=== PATIENT | female | born 1935 | race Caucasian/White ===

== ENCOUNTER 2023-10-28 22:56 | Inpatient (IN) | payer BC ==
[~2023-10-28] VITALS: Ht 162.6 cm; Wt 56.7 kg
[2023-10-28] MEDS ORDERED: POTA-88 PO (23:17)
[2023-10-28] MEDS ORDERED: FERR-56 PO (23:17)
[2023-10-28] MEDS ORDERED: CALC215T4 PO (23:17)
[2023-10-28] MEDS ORDERED: LEVO112T5 PO (23:17)
[2023-10-28] MEDS ORDERED: METF-440 PO (23:17)
[2023-10-28] MEDS ORDERED: AMLO2.5T4 PO (23:17)
[2023-10-28] MEDS ORDERED: LACT-291 PO (23:17)
[2023-10-28] MEDS ORDERED: METO25TA6 PO (23:17)
[2023-10-28] MEDS ORDERED: FURO20TA4 PO (23:17)
[2023-10-28] MEDS ORDERED: APIX5TAB4 PO (23:17)
[2023-10-28] MEDS ORDERED: CRAN250C PO (23:17)
[2023-10-28] MEDS ORDERED: CHOL5POW PO (23:17)
[2023-10-28 23:28] LABS: ERYTHROCYTE SEDIMENTATION RATE 56 MM/HR (0-20)
[2023-10-28 23:29] LABS: CALCIUM 9.2 mg/dL (8.5-10.1); CARBON DIOXIDE 27 mmol/L (21-32); CHLORIDE 101 mmol/L (98-107); CREATININE 0.7 mg/dL (0.6-1.3); GLUCOSE 151 mg/dL (74-106); POTASSIUM 3.9 mmol/L (3.5-5.1); SODIUM SERUM 137 mmol/L (136-145); UREA NITROGEN, BLOOD 12 mg/dL (7-18)
[2023-10-28 23:30] LABS: BASOPHILS # (AUTO) 0.3 K/UL (0.0-0.2); BASOPHILS % (AUTO) 2.8 % (0.0-2.0); DIFFERENTIAL COMMENT 0; EOSINOPHILS # (AUTO) 0.1 K/uL (0.0-0.7); EOSINOPHILS % (AUTO) 1.1 % (0.0-7.0); HEMOGLOBIN 12.5 g/dL (10.9-14.3); LYMPHOCYTES # (AUTO) 0.8 K/uL (0.8-4.8); MEAN CORPUSCULAR HEMOGLOBIN 28.4 uug (24.7-32.8); MEAN CORPUSCULAR HGB CONC 34 g/dL (32.3-35.6); MEAN CORPUSCULAR VOLUME 84.2 fL (75.5-95.3); MONOCYTES # (AUTO) 1.2 K/uL (0.1-1.30); MONOCYTES % (AUTO) 10.4 % (0.0-11.0); NEUTROPHILS # (AUTO) 8.9 K/uL (1.8-8.9); NEUTROPHILS % (AUTO) 78.7 % (38.5-71.5); PLATELET COUNT (AUTO) 216 K/uL (179-408); RED CELL DISTRIBUTION WIDTH 16.1 % (12.3-17.7); WHITE BLOOD COUNT (AUTO) 11.3 K/uL (3.8-11.8)
[2023-10-28 23:42] LABS: ALANINE AMINOTRANSFERASE 8 U/L (14-59); ALBUMIN 3.2 g/dL (3.4-5.0); ALKALINE PHOSPHATASE 51 U/L (50-136); ASPARTATE AMINOTRANSFERASE < 5 U/L (15-37); BILIRUBIN,TOTAL 0.4 mg/dL (0.2-1.0); NT-PRO BNP 1521 pg/mL (0-125); TOTAL PROTEIN, SERUM 6.8 g/dL (6.4-8.2)
[2023-10-29] MEDS ORDERED: LIDOCAINE HCL 1% 20 ML VIAL ONE (01:30)
[2023-10-29] MEDS: LIDOCAINE HCL 1% 20 ML VIAL IJ ONE (01:43)
[2023-10-29] MEDS ORDERED: REMEDY ESSENTIAL ZINC PASTE 113 GM TP PRN (02:45)
[2023-10-29] MEDS ORDERED: ONDANSETRON 4 MG/2 ML VIAL IV PRN (02:45)
[2023-10-29] MEDS ORDERED: MAGNESIUM HYDROXIDE 30 ML LIQUID UDC PO PRN (02:45)
[2023-10-29 04:51] VITALS: BP 153/98; TEMP 98.1; O2SAT 95
[2023-10-29] MEDS ORDERED: VANCOMYCIN HCL 1,500 MG in IV DEXTROSE 5% 500 ML IV SCH (06:00)
[2023-10-29] MEDS ORDERED: VANCOMYCIN IV 200 ML ONE (06:27)
[2023-10-29] MEDS ORDERED: PIPERACILLIN/TAZOBACTAM/D5W 50 ML IV ONE (06:27)
[2023-10-29] MEDS: VANCOMYCIN IV 1,000 MG in IV DEXTROSE 5% 250 ML IV STA (06:51)
[2023-10-29] MEDS: PIPERACILLIN SODIUM/TAZOBACTAM 3.375 G in IV DEXTROSE 5% 50 ML IV STA (06:51)
[2023-10-29 07:04] LABS: BASOPHILS # (AUTO) 0.1 K/UL (0.0-0.2); BASOPHILS % (AUTO) 1.4 % (0.0-2.0); EOSINOPHILS % (AUTO) 0.4 % (0.0-7.0); HEMATOCRIT 37.6 % (31.2-41.9); HEMOGLOBIN 12.5 g/dL (10.9-14.3); LYMPHOCYTES # (AUTO) 0.9 K/uL (0.8-4.8); LYMPHOCYTES % (AUTO) 10.4 % (20.5-51.5); MEAN CORPUSCULAR HEMOGLOBIN 27.9 uug (24.7-32.8); MEAN CORPUSCULAR HGB CONC 33 g/dL (32.3-35.6); MEAN CORPUSCULAR VOLUME 84.2 fL (75.5-95.3); MONOCYTES # (AUTO) 0.8 K/uL (0.1-1.30); MONOCYTES % (AUTO) 9.5 % (0.0-11.0); NEUTROPHILS # (AUTO) 6.5 K/uL (1.8-8.9); NEUTROPHILS % (AUTO) 78.3 % (38.5-71.5); PLATELET COUNT (AUTO) 205 K/uL (179-408); RED BLOOD CELL COUNT(AUTO) 4.46 MIL/uL (3.63-4.92); RED CELL DISTRIBUTION WIDTH 15.7 % (12.3-17.7); WHITE BLOOD COUNT (AUTO) 8.3 K/uL (3.8-11.8)
[2023-10-29 07:10] LABS: DIFFERENTIAL COMMENT 1
[2023-10-29 07:21] LABS: CARBON DIOXIDE 30 mmol/L (21-32); CHLORIDE 103 mmol/L (98-107); CREATININE 0.5 mg/dL (0.6-1.3); GLUCOSE 132 mg/dL (74-106); MAGNESIUM 1.7 mg/dL (1.8-2.4); NT-PRO BNP 1222 pg/mL (0-125); PHOSPHOROUS 3.9 mg/dL (2.5-4.9); POTASSIUM 3.8 mmol/L (3.5-5.1); SODIUM SERUM 141 mmol/L (136-145); UREA NITROGEN, BLOOD 10 mg/dL (7-18)
[2023-10-29] MEDS: MAGNESIUM OXIDE 400 MG TABLET PO ONE (10:17)
[2023-10-29 12:03] VITALS: BP 142/80; TEMP 97.7; O2SAT 94
[2023-10-29] MEDS: PIPERACILLIN SODIUM/TAZOBACTAM 3.375 G in IV DEXTROSE 5% 50 ML IV SCH (12:12)
[2023-10-29] MEDS ORDERED: PSYL0.4C2 PO (12:19)
[2023-10-29] MEDS ORDERED: HOME MED MISCELLANEOUS XX SCH ×3 (13:45)
[2023-10-29] MEDS ORDERED: DEXTROSE 50% 50 ML DISP.SYRIN IV PRN (14:00)
[2023-10-29] MEDS: AMLODIPINE 2.5 MG TABLET PO SCH (14:59)
[2023-10-29] MEDS: FUROSEMIDE 20 MG TABLET PO SCH (15:00)
[2023-10-29] MEDS: POTASSIUM CHLORIDE 20 MEQ POWDER PACKET PO SCH (15:00)
[2023-10-29] MEDS: METOPROLOL TARTRATE 25 MG TABLET PO SCH (15:00)
[2023-10-29] MEDS: LEVOTHYROXINE SODIUM 112 MCG TABLET PO SCH (15:00)
[2023-10-29 16:17] VITALS: BP 141/74; TEMP 97.9; O2SAT 95
[2023-10-29] MEDS: BLOOD SUGAR DIAGNOSTIC 1 EACH STRIP VI SCH (16:50)
[2023-10-29] MEDS: METFORMIN HCL 500 MG TABLET PO SCH (16:57)
[2023-10-29] MEDS: CEFTRIAXONE 2 G in IV DEXTROSE 5% 100 ML IV SCH (18:12)
[2023-10-29] MEDS: VANCOMYCIN IV 1,000 MG in IV DEXTROSE 5% 250 ML IV SCH (19:49)
[2023-10-29 20:57] VITALS: BP 136/74; TEMP 98.1; O2SAT 94
[2023-10-29] MEDS: APIXABAN 5 MG TABLET PO SCH (21:08)
[2023-10-29] MEDS: ACIDOPHILUS/BULGARICUS CHEW TAB PO SCH (21:09)
[2023-10-30 04:00] VITALS: BP 150/61; TEMP 97.3; O2SAT 95
[2023-10-30 07:33] LABS: CALCIUM 8.9 mg/dL (8.5-10.1); CARBON DIOXIDE 30 mmol/L (21-32); CHLORIDE 102 mmol/L (98-107); CREATININE 0.7 mg/dL (0.6-1.3); GLUCOSE 130 mg/dL (74-106); MAGNESIUM 1.8 mg/dL (1.8-2.4); POTASSIUM 3.5 mmol/L (3.5-5.1); SODIUM SERUM 140 mmol/L (136-145); UREA NITROGEN, BLOOD 8 mg/dL (7-18)
[2023-10-30] MEDS: PSYLLIUM SEED PACKET PO SCH (08:20)
[2023-10-30] MEDS: INSULIN REGULAR, HUMAN 1000 UNIT/10 ML VIAL SQ PRN (11:40)
[2023-10-30 11:58] VITALS: BP 146/59; TEMP 98.4; O2SAT 97
[2023-10-30 12:59] LABS: URIC ACID 2.2 mg/dL (2.6-6.0)
[2023-10-30 14:39] LABS: C-REACTIVE PROTEIN 10.97 mg/dL (0.00-0.30)
[2023-10-30 15:18] LABS: MONOCYTES,BODY FLUID 9 %; POLYNUCLEAR, BODY FLUID 55 % (0-25 %)
[2023-10-30 16:23] VITALS: BP 123/62; TEMP 97.7; O2SAT 97
[2023-10-30 20:00] VITALS: BP 123/73; TEMP 98.3; O2SAT 95
[2023-10-30] MEDS: MUPIROCIN 2% OINT 22 GM TUBE NS SCH (20:20)
[2023-10-30 23:24] LABS: HIV-1 p24 ANTIGEN NON REACTIVE (NONREACTIVE); HIV-1/2 ANTIBODY NON REACTIVE (NONREACTIVE)
[2023-10-31] MEDS: FERROUS SULFATE 325 MG TABEC PO SCH (08:32)
[2023-10-31] MEDS: POTASSIUM CHLORIDE 10 MEQ TAB.PRT.SR PO SCH (08:33)
[2023-10-31 12:00] VITALS: BP 148/79; TEMP 96.3; O2SAT 97
[2023-10-31] MEDS ORDERED: MUPIROCIN 2% OINT 22 GM TUBE NS SCH (12:45)
[2023-10-31 16:00] VITALS: BP 124/70; TEMP 97.2; O2SAT 96
[2023-10-31 20:00] VITALS: BP 114/66; TEMP 98
[2023-11-01 11:34] VITALS: BP 133/65; TEMP 98.4; O2SAT 96
[2023-11-01 16:00] VITALS: BP 122/67; TEMP 98.4; O2SAT 96
[2023-11-01 20:18] VITALS: BP 124/64; TEMP 98.2; O2SAT 96
[2023-11-02 05:11] VITALS: BP 124/63; TEMP 98.3; O2SAT 94
[2023-11-02 06:57] LABS: CALCIUM 8.9 mg/dL (8.5-10.1); CARBON DIOXIDE 24 mmol/L (21-32); CHLORIDE 101 mmol/L (98-107); CREATININE 1.5 mg/dL (0.6-1.3); GLUCOSE 131 mg/dL (74-106); POTASSIUM 3.7 mmol/L (3.5-5.1); SODIUM SERUM 137 mmol/L (136-145); UREA NITROGEN, BLOOD 18 mg/dL (7-18)
[2023-11-02 06:59] LABS: BASOPHILS # (AUTO) 0.1 K/UL (0.0-0.2); BASOPHILS % (AUTO) 0.9 % (0.0-2.0); EOSINOPHILS # (AUTO) 0.2 K/uL (0.0-0.7); EOSINOPHILS % (AUTO) 1.8 % (0.0-7.0); HEMATOCRIT 35.1 % (31.2-41.9); HEMOGLOBIN 11.7 g/dL (10.9-14.3); LYMPHOCYTES # (AUTO) 0.8 K/uL (0.8-4.8); LYMPHOCYTES % (AUTO) 7.5 % (20.5-51.5); MEAN CORPUSCULAR HEMOGLOBIN 28.1 uug (24.7-32.8); MEAN CORPUSCULAR HGB CONC 33 g/dL (32.3-35.6); MEAN CORPUSCULAR VOLUME 84.6 fL (75.5-95.3); MONOCYTES # (AUTO) 1.5 K/uL (0.1-1.30); MONOCYTES % (AUTO) 13.7 % (0.0-11.0); NEUTROPHILS # (AUTO) 8.3 K/uL (1.8-8.9); NEUTROPHILS % (AUTO) 76.1 % (38.5-71.5); PLATELET COUNT (AUTO) 230 K/uL (179-408); RED BLOOD CELL COUNT(AUTO) 4.15 MIL/uL (3.63-4.92); RED CELL DISTRIBUTION WIDTH 15.5 % (12.3-17.7)
[2023-11-02 07:01] LABS: DIFFERENTIAL COMMENT 1
[2023-11-02] MEDS ORDERED: METFORMIN HCL 500 MG TABLET PO SCH (09:00)
[2023-11-02] MEDS: ENSURE WITH FIBER 237 ML LIQUID (CHOCOLATE) PO SCH (12:05)
[2023-11-02 12:10] VITALS: BP 112/61; TEMP 97.2; O2SAT 95
[2023-11-02 16:03] VITALS: BP 125/74; TEMP 97.8; O2SAT 92
[2023-11-02 20:00] VITALS: BP 120/61; TEMP 97.8; O2SAT 92
[2023-11-03 06:00] VITALS: BP 124/77; TEMP 97.7; O2SAT 94
[2023-11-03 07:59] LABS: BASOPHILS % (AUTO) 0.4 % (0.0-2.0); EOSINOPHILS # (AUTO) 0.4 K/uL (0.0-0.7); EOSINOPHILS % (AUTO) 3.6 % (0.0-7.0); HEMATOCRIT 35.2 % (31.2-41.9); HEMOGLOBIN 11.9 g/dL (10.9-14.3); LYMPHOCYTES # (AUTO) 0.7 K/uL (0.8-4.8); LYMPHOCYTES % (AUTO) 6.8 % (20.5-51.5); MEAN CORPUSCULAR HEMOGLOBIN 28.2 uug (24.7-32.8); MEAN CORPUSCULAR HGB CONC 34 g/dL (32.3-35.6); MEAN CORPUSCULAR VOLUME 83.7 fL (75.5-95.3); MONOCYTES # (AUTO) 1.3 K/uL (0.1-1.30); MONOCYTES % (AUTO) 12.2 % (0.0-11.0); PLATELET COUNT (AUTO) 294 K/uL (179-408); RED CELL DISTRIBUTION WIDTH 15.3 % (12.3-17.7); WHITE BLOOD COUNT (AUTO) 10.3 K/uL (3.8-11.8)
[2023-11-03 08:08] LABS: DIFFERENTIAL COMMENT 1
[2023-11-03 08:15] LABS: CALCIUM 8.9 mg/dL (8.5-10.1); CARBON DIOXIDE 27 mmol/L (21-32); CHLORIDE 101 mmol/L (98-107); CREATININE 2.1 mg/dL (0.6-1.3); GLUCOSE 147 mg/dL (74-106); MAGNESIUM 1.9 mg/dL (1.8-2.4); PHOSPHOROUS 3.8 mg/dL (2.5-4.9); POTASSIUM 3.6 mmol/L (3.5-5.1); SODIUM SERUM 137 mmol/L (136-145); UREA NITROGEN, BLOOD 26 mg/dL (7-18)
[2023-11-03 08:20] LABS: VANCOMYCIN,RANDOM 30.4 ug/mL (20.0-30.0)
[2023-11-03] MEDS: IV NS 1000 ML 1,000 ML IV PRN (11:53)
[2023-11-03 12:00] VITALS: BP 123/65; TEMP 97.5; O2SAT 99
[2023-11-03 16:44] VITALS: BP 146/66; TEMP 98.1; O2SAT 98
[2023-11-03] MEDS: CLOTRIMAZOLE 1% CREAM 30 GM TUBE TOP SCH (17:51)
[2023-11-03 20:00] VITALS: BP 186/75; TEMP 98.1; O2SAT 96
[2023-11-03 21:39] VITALS: BP 131/60; TEMP 98.1; O2SAT 96
[2023-11-04 06:00] VITALS: BP 151/66; TEMP 98.4; O2SAT 98
[2023-11-04 12:00] VITALS: BP 141/67; TEMP 97.9; O2SAT 93
[2023-11-04 16:35] VITALS: BP 120/75; TEMP 97.6; O2SAT 94
[2023-11-04 20:00] VITALS: BP 146/66; TEMP 98.5; O2SAT 95
[2023-11-05 04:00] VITALS: BP 157/88; TEMP 98.2; O2SAT 93
[2023-11-05 07:36] LABS: BASOPHILS # (AUTO) 0.1 K/UL (0.0-0.2); BASOPHILS % (AUTO) 0.7 % (0.0-2.0); CALCIUM 8.8 mg/dL (8.5-10.1); CARBON DIOXIDE 24 mmol/L (21-32); CHLORIDE 104 mmol/L (98-107); CREATININE 1.8 mg/dL (0.6-1.3); EOSINOPHILS # (AUTO) 0.3 K/uL (0.0-0.7); EOSINOPHILS % (AUTO) 2.3 % (0.0-7.0); GLUCOSE 153 mg/dL (74-106); HEMOGLOBIN 11.2 g/dL (10.9-14.3); LYMPHOCYTES # (AUTO) 0.7 K/uL (0.8-4.8); LYMPHOCYTES % (AUTO) 6.5 % (20.5-51.5); MAGNESIUM 1.9 mg/dL (1.8-2.4); MEAN CORPUSCULAR HEMOGLOBIN 28.5 uug (24.7-32.8); MEAN CORPUSCULAR HGB CONC 34 g/dL (32.3-35.6); MEAN CORPUSCULAR VOLUME 84.2 fL (75.5-95.3); MONOCYTES # (AUTO) 1.5 K/uL (0.1-1.30); MONOCYTES % (AUTO) 13.9 % (0.0-11.0); NEUTROPHILS # (AUTO) 8.4 K/uL (1.8-8.9); NEUTROPHILS % (AUTO) 76.6 % (38.5-71.5); PHOSPHOROUS 3.6 mg/dL (2.5-4.9); PLATELET COUNT (AUTO) 298 K/uL (179-408); POTASSIUM 3.8 mmol/L (3.5-5.1); RED BLOOD CELL COUNT(AUTO) 3.92 MIL/uL (3.63-4.92); RED CELL DISTRIBUTION WIDTH 15.3 % (12.3-17.7); SODIUM SERUM 138 mmol/L (136-145); UREA NITROGEN, BLOOD 24 mg/dL (7-18)
[2023-11-05 07:37] LABS: DIFFERENTIAL COMMENT 1
[2023-11-05 11:12] VITALS: BP 125/67; TEMP 97.4; O2SAT 94
[2023-11-05 16:00] VITALS: BP 148/76; TEMP 97.8; O2SAT 95
[2023-11-05] MEDS: GLUCERNA SHAKE 237 ML CAN PO SCH (17:15)
[2023-11-05 20:00] VITALS: BP_SYST 146; BP_SYST 156; BP_DIAS 51; BP_DIAS 55; TEMP 99.1; O2SAT 92
[2023-11-05] MEDS: APIXABAN 2.5 MG TABLET PO SCH (20:35)
[2023-11-06 06:00] VITALS: BP 154/99; TEMP 98.3; O2SAT 93
[2023-11-06 06:27] LABS: BASOPHILS % (AUTO) 0.4 % (0.0-2.0); EOSINOPHILS # (AUTO) 0.3 K/uL (0.0-0.7); EOSINOPHILS % (AUTO) 3.6 % (0.0-7.0); HEMATOCRIT 33.7 % (31.2-41.9); LYMPHOCYTES # (AUTO) 0.8 K/uL (0.8-4.8); LYMPHOCYTES % (AUTO) 8.4 % (20.5-51.5); MEAN CORPUSCULAR HEMOGLOBIN 27.7 uug (24.7-32.8); MEAN CORPUSCULAR HGB CONC 33 g/dL (32.3-35.6); MONOCYTES # (AUTO) 1.5 K/uL (0.1-1.30); MONOCYTES % (AUTO) 15.3 % (0.0-11.0); NEUTROPHILS % (AUTO) 72.3 % (38.5-71.5); PLATELET COUNT (AUTO) 284 K/uL (179-408); RED BLOOD CELL COUNT(AUTO) 3.97 MIL/uL (3.63-4.92); RED CELL DISTRIBUTION WIDTH 15.2 % (12.3-17.7); WHITE BLOOD COUNT (AUTO) 9.7 K/uL (3.8-11.8)
[2023-11-06 06:38] LABS: DIFFERENTIAL COMMENT 1
[2023-11-06 06:39] LABS: CALCIUM 8.6 mg/dL (8.5-10.1); CARBON DIOXIDE 26 mmol/L (21-32); CHLORIDE 106 mmol/L (98-107); CREATININE 1.8 mg/dL (0.6-1.3); GLUCOSE 139 mg/dL (74-106); MAGNESIUM 1.9 mg/dL (1.8-2.4); PHOSPHOROUS 3.3 mg/dL (2.5-4.9); POTASSIUM 3.9 mmol/L (3.5-5.1); SODIUM SERUM 139 mmol/L (136-145); UREA NITROGEN, BLOOD 29 mg/dL (7-18)
[2023-11-06 07:26] LABS: ANISOCYTOSIS 1+; EOSINOPHILS % (MANUAL) 3 % (0-8); LYMPHOCYTES % (MANUAL) 6 % (20-40); MONOCYTES % (MANUAL) 12 % (2-10); NEUTROPHILS % (MANUAL) 79 % (42-75); OVALOCYTES 1+; PLATELET ESTIMATE ADEQUATE
[2023-11-06 12:00] VITALS: BP 138/65; TEMP 97.8; O2SAT 98
[2023-11-06 16:00] VITALS: BP 126/76; TEMP 98.6; O2SAT 97
[2023-11-06 20:00] VITALS: BP 158/86; TEMP 97.7; O2SAT 100
[2023-11-07 06:00] VITALS: BP 151/83; TEMP 97.5; O2SAT 95
[2023-11-07 10:12] LABS: BASOPHILS # (AUTO) 0.2 K/UL (0.0-0.2); BASOPHILS % (AUTO) 1.6 % (0.0-2.0); EOSINOPHILS # (AUTO) 0.2 K/uL (0.0-0.7); EOSINOPHILS % (AUTO) 1.5 % (0.0-7.0); HEMATOCRIT 33.8 % (31.2-41.9); HEMOGLOBIN 11.2 g/dL (10.9-14.3); LYMPHOCYTES # (AUTO) 0.5 K/uL (0.8-4.8); LYMPHOCYTES % (AUTO) 4.5 % (20.5-51.5); MEAN CORPUSCULAR HEMOGLOBIN 27.9 uug (24.7-32.8); MEAN CORPUSCULAR HGB CONC 33 g/dL (32.3-35.6); MEAN CORPUSCULAR VOLUME 84.1 fL (75.5-95.3); MONOCYTES % (AUTO) 9.5 % (0.0-11.0); NEUTROPHILS # (AUTO) 8.9 K/uL (1.8-8.9); NEUTROPHILS % (AUTO) 82.9 % (38.5-71.5); PLATELET COUNT (AUTO) 321 K/uL (179-408); RED BLOOD CELL COUNT(AUTO) 4.03 MIL/uL (3.63-4.92); RED CELL DISTRIBUTION WIDTH 15.7 % (12.3-17.7); WHITE BLOOD COUNT (AUTO) 10.7 K/uL (3.8-11.8)
[2023-11-07 10:25] LABS: ALANINE AMINOTRANSFERASE 49 U/L (14-59); ALBUMIN 2.2 g/dL (3.4-5.0); ALKALINE PHOSPHATASE 54 U/L (50-136); ASPARTATE AMINOTRANSFERASE 31 U/L (15-37); BILIRUBIN,TOTAL 0.3 mg/dL (0.2-1.0); CALCIUM 8.6 mg/dL (8.5-10.1); CARBON DIOXIDE 26 mmol/L (21-32); CHLORIDE 105 mmol/L (98-107); CREATININE 1.6 mg/dL (0.6-1.3); GLUCOSE 223 mg/dL (74-106); MAGNESIUM 1.6 mg/dL (1.8-2.4); PHOSPHOROUS 3.3 mg/dL (2.5-4.9); POTASSIUM 3.9 mmol/L (3.5-5.1); SODIUM SERUM 138 mmol/L (136-145); TOTAL PROTEIN, SERUM 6.2 g/dL (6.4-8.2); UREA NITROGEN, BLOOD 30 mg/dL (7-18)
[2023-11-07 10:30] LABS: DIFFERENTIAL COMMENT 1
[2023-11-07 11:36] VITALS: BP 142/77; TEMP 97.6; O2SAT 96
[2023-11-07 16:47] VITALS: BP 162/84; TEMP 98.8; O2SAT 95
[2023-11-07 16:48] LABS: *BILIRUBIN,URIN NEGATIVE (NEGATIVE); *CLARITY,URINE CLEAR (CLEAR); *COLOR,URINE YELLOW (YELLOW); *KETONES,URINE NEGATIVE (NEGATIVE); *PROTEIN,URINE NEGATIVE (NEGATIVE); *UROBILINOGEN,URINE 0.2 E.U./dl (NORMAL); LEUKOCYTE ESTERASE ,URINE NEGATIVE (NEGATIVE); NITRITE, URINE NEGATIVE (NEGATIVE); UGLUCOSE NEGATIVE (NEGATIVE)
[2023-11-07 16:50] LABS: *BLOOD, URINE TRACE (NEGATIVE)
[2023-11-07 16:56] LABS: *CREATININE,URINE 58.5 mg/dL (30-125); *URINE TOTAL PROTEIN RANDOM 50.5 mg/dL (<150/24HR)
[2023-11-07 17:34] LABS: BACTERIA,URINE FEW /HPF (NONE SEEN); RBC,URINE 0-3 /HPF (0-3); SQUAMOUS EPITHELIAL CELL,UR FEW /HPF (NONE SEEN); WBC,URINE 0-3 /HPF (0-3)
[2023-11-07] MEDS: ACETAMINOPHEN 325 MG TABLET PO PRN (17:36)
[2023-11-07 20:22] VITALS: BP 111/60; TEMP 97.8; O2SAT 93
[2023-11-08 04:00] VITALS: BP 149/89; TEMP 98.9; O2SAT 90
[2023-11-08 07:04] LABS: BASOPHILS # (AUTO) 0.1 K/UL (0.0-0.2); BASOPHILS % (AUTO) 0.8 % (0.0-2.0); EOSINOPHILS # (AUTO) 0.2 K/uL (0.0-0.7); HEMATOCRIT 33.4 % (31.2-41.9); HEMOGLOBIN 11.1 g/dL (10.9-14.3); LYMPHOCYTES # (AUTO) 0.7 K/uL (0.8-4.8); LYMPHOCYTES % (AUTO) 6.8 % (20.5-51.5); MEAN CORPUSCULAR HEMOGLOBIN 27.9 uug (24.7-32.8); MEAN CORPUSCULAR HGB CONC 33 g/dL (32.3-35.6); MEAN CORPUSCULAR VOLUME 84.2 fL (75.5-95.3); MONOCYTES # (AUTO) 1.7 K/uL (0.1-1.30); MONOCYTES % (AUTO) 15.7 % (0.0-11.0); NEUTROPHILS % (AUTO) 74.7 % (38.5-71.5); PLATELET COUNT (AUTO) 349 K/uL (179-408); RED BLOOD CELL COUNT(AUTO) 3.97 MIL/uL (3.63-4.92); RED CELL DISTRIBUTION WIDTH 15.1 % (12.3-17.7); WHITE BLOOD COUNT (AUTO) 10.7 K/uL (3.8-11.8)
[2023-11-08 07:06] LABS: ALANINE AMINOTRANSFERASE 50 U/L (14-59); ALBUMIN 2.2 g/dL (3.4-5.0); ALKALINE PHOSPHATASE 55 U/L (50-136); ASPARTATE AMINOTRANSFERASE 32 U/L (15-37); BILIRUBIN,TOTAL 0.4 mg/dL (0.2-1.0); CALCIUM 8.7 mg/dL (8.5-10.1); CARBON DIOXIDE 25 mmol/L (21-32); CHLORIDE 102 mmol/L (98-107); CREATININE 1.4 mg/dL (0.6-1.3); GLUCOSE 150 mg/dL (74-106); MAGNESIUM 1.6 mg/dL (1.8-2.4); PHOSPHOROUS 3.6 mg/dL (2.5-4.9); POTASSIUM 3.5 mmol/L (3.5-5.1); SODIUM SERUM 138 mmol/L (136-145); TOTAL PROTEIN, SERUM 6.3 g/dL (6.4-8.2); UREA NITROGEN, BLOOD 25 mg/dL (7-18)
[2023-11-08 07:10] LABS: DIFFERENTIAL COMMENT 1
[2023-11-08 11:41] VITALS: BP 150/54; TEMP 98.8; O2SAT 95
[2023-11-08 14:40] LABS: NEUTROPHILS % (MANUAL) 70 % (42-75)
[2023-11-08 14:41] LABS: ANISOCYTOSIS 1+; BAND % (MANUAL) 2 % (0-10); LYMPHOCYTES % (MANUAL) 10 % (20-40); MONOCYTES % (MANUAL) 18 % (2-10); PLATELET ESTIMATE ADEQUATE
[2023-11-08] MEDS: MAGNESIUM OXIDE 400 MG TABLET PO ONE (14:56)
[2023-11-08 16:18] VITALS: BP 152/83; TEMP 98.7; O2SAT 95
[2023-11-08 20:08] VITALS: BP 138/76; TEMP 98.2; O2SAT 93
[2023-11-09 05:20] VITALS: BP 153/70; TEMP 98.3; O2SAT 94
[2023-11-09 06:57] LABS: BASOPHILS # (AUTO) 0.1 K/UL (0.0-0.2); BASOPHILS % (AUTO) 0.9 % (0.0-2.0); EOSINOPHILS # (AUTO) 0.1 K/uL (0.0-0.7); EOSINOPHILS % (AUTO) 1.5 % (0.0-7.0); HEMATOCRIT 31.6 % (31.2-41.9); HEMOGLOBIN 10.5 g/dL (10.9-14.3); LYMPHOCYTES # (AUTO) 0.8 K/uL (0.8-4.8); LYMPHOCYTES % (AUTO) 7.9 % (20.5-51.5); MEAN CORPUSCULAR HGB CONC 33 g/dL (32.3-35.6); MEAN CORPUSCULAR VOLUME 83.9 fL (75.5-95.3); MONOCYTES # (AUTO) 1.6 K/uL (0.1-1.30); MONOCYTES % (AUTO) 15.7 % (0.0-11.0); NEUTROPHILS # (AUTO) 7.5 K/uL (1.8-8.9); PLATELET COUNT (AUTO) 338 K/uL (179-408); RED BLOOD CELL COUNT(AUTO) 3.77 MIL/uL (3.63-4.92); RED CELL DISTRIBUTION WIDTH 14.9 % (12.3-17.7); WHITE BLOOD COUNT (AUTO) 10.1 K/uL (3.8-11.8)
[2023-11-09 07:02] LABS: DIFFERENTIAL COMMENT 1
[2023-11-09 07:45] LABS: CALCIUM 8.3 mg/dL (8.5-10.1); CARBON DIOXIDE 26 mmol/L (21-32); CHLORIDE 103 mmol/L (98-107); CREATININE 1.2 mg/dL (0.6-1.3); GLUCOSE 138 mg/dL (74-106); MAGNESIUM 1.5 mg/dL (1.8-2.4); PHOSPHOROUS 3.1 mg/dL (2.5-4.9); POTASSIUM 3.5 mmol/L (3.5-5.1); SODIUM SERUM 138 mmol/L (136-145); UREA NITROGEN, BLOOD 23 mg/dL (7-18)
[2023-11-09] MEDS: MAGNESIUM SULFATE/D5W 100 ML IV SCH (10:20)
[2023-11-09 11:35] LABS: EOSINOPHILS % (MANUAL) 2 % (0-8); LYMPHOCYTES % (MANUAL) 7 % (20-40); MONOCYTES % (MANUAL) 11 % (2-10); NEUTROPHILS % (MANUAL) 80 % (42-75)
[2023-11-09 11:44] VITALS: BP 143/60; TEMP 98; O2SAT 94
[2023-11-09 11:44] LABS: PLATELET ESTIMATE ADEQUATE
[2023-11-09 15:50] VITALS: BP 138/64; TEMP 98.6; O2SAT 94
[2023-11-09 19:57] VITALS: TEMP 98.1
[2023-11-10 06:06] VITALS: TEMP 98
[2023-11-10 07:42] LABS: CALCIUM 8.4 mg/dL (8.5-10.1); CARBON DIOXIDE 26 mmol/L (21-32); CHLORIDE 107 mmol/L (98-107); CREATININE 1.1 mg/dL (0.6-1.3); GLUCOSE 140 mg/dL (74-106); MAGNESIUM 1.8 mg/dL (1.8-2.4); POTASSIUM 3.2 mmol/L (3.5-5.1); SODIUM SERUM 141 mmol/L (136-145); UREA NITROGEN, BLOOD 25 mg/dL (7-18)
[2023-11-10] MEDS: POTASSIUM CHLORIDE 20 MEQ TAB.PRT.SR PO SCH (08:33)
[2023-11-10 11:12] VITALS: BP 139/62; TEMP 97.1; O2SAT 93
[2023-11-10] MEDS: POTASSIUM CHLORIDE 20 MEQ POWDER PACKET PO ONE (11:32)
[2023-11-10 15:52] VITALS: BP 109/52; TEMP 97.5; O2SAT 92
[2023-11-10 19:00] VITALS: BP 158/76; TEMP 98.4; O2SAT 91
[2023-11-11 06:00] VITALS: BP 147/78; TEMP 98; O2SAT 98
[2023-11-11 07:46] LABS: CALCIUM 8.7 mg/dL (8.5-10.1); CARBON DIOXIDE 25 mmol/L (21-32); CHLORIDE 104 mmol/L (98-107); CREATININE 0.9 mg/dL (0.6-1.3); GLUCOSE 126 mg/dL (74-106); POTASSIUM 3.7 mmol/L (3.5-5.1); SODIUM SERUM 139 mmol/L (136-145); UREA NITROGEN, BLOOD 26 mg/dL (7-18)
[2023-11-11 11:12] VITALS: BP 142/85; TEMP 99; O2SAT 91
[2023-11-11 16:01] VITALS: BP 138/78; TEMP 97.8; O2SAT 96
[2023-11-11 21:06] VITALS: BP 141/76; TEMP 97.7; O2SAT 93
[2023-11-12 06:35] VITALS: BP 172/94; TEMP 97.8; O2SAT 92
[2023-11-12 11:21] VITALS: BP 130/67; TEMP 98; O2SAT 93
[2023-11-12 16:33] VITALS: BP 153/64; TEMP 98.9; O2SAT 97
[2023-11-12 20:22] VITALS: BP 161/69; TEMP 97.7; O2SAT 95
[2023-11-13 06:06] VITALS: BP 145/69; TEMP 97.6; O2SAT 95
[2023-11-13 12:00] VITALS: BP 144/71; TEMP 98.2; O2SAT 96
[2023-11-13 12:10] VITALS: O2SAT 97
[2023-11-13 16:00] VITALS: BP 136/52; TEMP 98.6; O2SAT 96
[2023-11-13 20:00] VITALS: BP 137/63; TEMP 97.2; O2SAT 93
[2023-11-14 06:00] VITALS: BP 150/64; TEMP 97.9; O2SAT 95
[2023-11-14 07:40] LABS: BASOPHILS # (AUTO) 0.1 K/UL (0.0-0.2); BASOPHILS % (AUTO) 0.7 % (0.0-2.0); EOSINOPHILS # (AUTO) 0.3 K/uL (0.0-0.7); EOSINOPHILS % (AUTO) 3.7 % (0.0-7.0); HEMATOCRIT 31.7 % (31.2-41.9); HEMOGLOBIN 10.3 g/dL (10.9-14.3); LYMPHOCYTES # (AUTO) 1.3 K/uL (0.8-4.8); LYMPHOCYTES % (AUTO) 16.4 % (20.5-51.5); MEAN CORPUSCULAR HEMOGLOBIN 27.5 uug (24.7-32.8); MEAN CORPUSCULAR HGB CONC 33 g/dL (32.3-35.6); MEAN CORPUSCULAR VOLUME 84.4 fL (75.5-95.3); MONOCYTES % (AUTO) 12.1 % (0.0-11.0); NEUTROPHILS # (AUTO) 5.3 K/uL (1.8-8.9); NEUTROPHILS % (AUTO) 67.1 % (38.5-71.5); PLATELET COUNT (AUTO) 392 K/uL (179-408); RED BLOOD CELL COUNT(AUTO) 3.76 MIL/uL (3.63-4.92); RED CELL DISTRIBUTION WIDTH 15.1 % (12.3-17.7); WHITE BLOOD COUNT (AUTO) 7.9 K/uL (3.8-11.8)
[2023-11-14 07:58] LABS: DIFFERENTIAL COMMENT 1
[2023-11-14 08:15] LABS: CALCIUM 8.5 mg/dL (8.5-10.1); CARBON DIOXIDE 29 mmol/L (21-32); CHLORIDE 105 mmol/L (98-107); CREATININE 0.8 mg/dL (0.6-1.3); GLUCOSE 123 mg/dL (74-106); MAGNESIUM 1.5 mg/dL (1.8-2.4); PHOSPHOROUS 3.6 mg/dL (2.5-4.9); POTASSIUM 3.6 mmol/L (3.5-5.1); SODIUM SERUM 140 mmol/L (136-145); UREA NITROGEN, BLOOD 22 mg/dL (7-18)
[2023-11-14 11:15] VITALS: BP 122/59; TEMP 97.2; O2SAT 92
[2023-11-14] MEDS: MAGNESIUM OXIDE 400 MG TABLET PO ONE (13:41)
[2023-11-14 15:09] VITALS: BP 123/64; TEMP 98.4; O2SAT 94
[2023-11-14 19:00] VITALS: BP 137/72; TEMP 97.9; O2SAT 95
[2023-11-15 06:00] VITALS: BP 145/88; TEMP 98.1; O2SAT 95
[2023-11-15 07:12] LABS: BASOPHILS # (AUTO) 0.1 K/UL (0.0-0.2); BASOPHILS % (AUTO) 0.7 % (0.0-2.0); EOSINOPHILS # (AUTO) 0.3 K/uL (0.0-0.7); HEMOGLOBIN 10.4 g/dL (10.9-14.3); LYMPHOCYTES # (AUTO) 1.1 K/uL (0.8-4.8); LYMPHOCYTES % (AUTO) 11.6 % (20.5-51.5); MEAN CORPUSCULAR HEMOGLOBIN 27.2 uug (24.7-32.8); MEAN CORPUSCULAR HGB CONC 33 g/dL (32.3-35.6); MEAN CORPUSCULAR VOLUME 83.6 fL (75.5-95.3); MONOCYTES # (AUTO) 1.2 K/uL (0.1-1.30); MONOCYTES % (AUTO) 13.1 % (0.0-11.0); NEUTROPHILS # (AUTO) 6.5 K/uL (1.8-8.9); NEUTROPHILS % (AUTO) 71.6 % (38.5-71.5); PLATELET COUNT (AUTO) 425 K/uL (179-408); RED BLOOD CELL COUNT(AUTO) 3.83 MIL/uL (3.63-4.92); WHITE BLOOD COUNT (AUTO) 9.1 K/uL (3.8-11.8)
[2023-11-15 07:33] LABS: DIFFERENTIAL COMMENT 1
[2023-11-15 08:16] LABS: CALCIUM 8.9 mg/dL (8.5-10.1); CARBON DIOXIDE 29 mmol/L (21-32); CHLORIDE 103 mmol/L (98-107); CREATININE 0.7 mg/dL (0.6-1.3); GLUCOSE 140 mg/dL (74-106); MAGNESIUM 1.4 mg/dL (1.8-2.4); PHOSPHOROUS 3.5 mg/dL (2.5-4.9); POTASSIUM 3.9 mmol/L (3.5-5.1); SODIUM SERUM 141 mmol/L (136-145); UREA NITROGEN, BLOOD 25 mg/dL (7-18)
[2023-11-15] MEDS: FUROSEMIDE 20 MG/2 ML VIAL IV ONE (09:14)
[2023-11-15] MEDS: MAGNESIUM OXIDE 400 MG TABLET PO SCH (11:44)
[2023-11-15 11:45] VITALS: BP 116/59; TEMP 97.5; O2SAT 95
[2023-11-15 11:47] VITALS: BP 137/64; TEMP 97.8; O2SAT 93
[2023-11-15 16:00] VITALS: BP 124/66; TEMP 97.4; O2SAT 96
[2023-11-15 20:15] VITALS: BP 120/64; TEMP 98.4; O2SAT 96
[2023-11-16 05:35] VITALS: BP 137/90; TEMP 97.5; O2SAT 97
[2023-11-16] MEDS: FUROSEMIDE 20 MG TABLET PO SCH (08:37)
[2023-11-16 12:00] VITALS: BP 113/71; TEMP 98.5; O2SAT 96
[2023-11-16 13:02] VITALS: O2SAT 97
[2023-11-16 16:52] VITALS: BP 127/70; TEMP 96.4; O2SAT 90
[2023-11-16 18:25] VITALS: O2SAT 95
[2023-11-16 20:00] VITALS: BP 128/90; TEMP 97; O2SAT 93
[2023-11-17 04:00] VITALS: BP 100/73; TEMP 97.6; O2SAT 93
[2023-11-17 07:35] LABS: BASOPHILS # (AUTO) 0.1 K/UL (0.0-0.2); BASOPHILS % (AUTO) 0.7 % (0.0-2.0); EOSINOPHILS # (AUTO) 0.3 K/uL (0.0-0.7); EOSINOPHILS % (AUTO) 3.3 % (0.0-7.0); HEMOGLOBIN 10.6 g/dL (10.9-14.3); LYMPHOCYTES # (AUTO) 1.1 K/uL (0.8-4.8); LYMPHOCYTES % (AUTO) 13.8 % (20.5-51.5); MEAN CORPUSCULAR HEMOGLOBIN 27.7 uug (24.7-32.8); MEAN CORPUSCULAR HGB CONC 33 g/dL (32.3-35.6); MEAN CORPUSCULAR VOLUME 83.7 fL (75.5-95.3); MONOCYTES # (AUTO) 1.1 K/uL (0.1-1.30); MONOCYTES % (AUTO) 13.5 % (0.0-11.0); NEUTROPHILS # (AUTO) 5.4 K/uL (1.8-8.9); NEUTROPHILS % (AUTO) 68.7 % (38.5-71.5); PLATELET COUNT (AUTO) 389 K/uL (179-408); RED BLOOD CELL COUNT(AUTO) 3.82 MIL/uL (3.63-4.92); WHITE BLOOD COUNT (AUTO) 7.9 K/uL (3.8-11.8)
[2023-11-17 07:53] LABS: CALCIUM 8.9 mg/dL (8.5-10.1); CARBON DIOXIDE 34 mmol/L (21-32); CHLORIDE 102 mmol/L (98-107); CREATININE 0.8 mg/dL (0.6-1.3); GLUCOSE 140 mg/dL (74-106); POTASSIUM 3.8 mmol/L (3.5-5.1); SODIUM SERUM 142 mmol/L (136-145); UREA NITROGEN, BLOOD 21 mg/dL (7-18)
[2023-11-17 07:54] LABS: DIFFERENTIAL COMMENT 1
[2023-11-17 10:03] VITALS: O2SAT 94
[2023-11-17] MEDS ORDERED: CEFA1TAB PO (10:18)
[2023-11-17 11:01] VITALS: BP 139/87; TEMP 97.8; O2SAT 94
[2023-11-17 15:53] VITALS: BP 131/97; TEMP 97.2; O2SAT 96
[2023-11-17 19:00] VITALS: BP 93/66; TEMP 97.7; O2SAT 96
[2023-11-18 06:00] VITALS: BP 139/81; TEMP 97.9; O2SAT 95
[2023-11-18 11:13] VITALS: BP 108/70; TEMP 98.6; O2SAT 100
[2023-11-18 15:16] VITALS: BP 121/71; TEMP 98.2; O2SAT 98
[2023-11-18 19:00] VITALS: BP 129/64; TEMP 97.7; O2SAT 96
[2023-11-19 06:00] VITALS: BP 130/78; TEMP 98.4; O2SAT 96
[2023-11-19 11:41] VITALS: BP 113/69; TEMP 97.6; O2SAT 95
[2023-11-19 16:34] VITALS: BP 131/61; TEMP 97.7; O2SAT 96
[2023-11-19 20:00] VITALS: BP 144/82; TEMP 97.4; O2SAT 97
[2023-11-20 06:00] VITALS: BP 151/83; TEMP 97.9; O2SAT 94
[2023-11-20 11:36] VITALS: BP 119/72; TEMP 97.6; O2SAT 92
[2023-11-20 16:19] VITALS: BP 123/67; TEMP 97.6; O2SAT 97
[2023-11-20 22:26] VITALS: BP 127/62; TEMP 97.6; O2SAT 94
[2023-11-21 06:57] VITALS: BP 149/85; TEMP 97.5; O2SAT 94
[2023-11-21 08:53] LABS: CARBON DIOXIDE 34 mmol/L (21-32); CHLORIDE 102 mmol/L (98-107); CREATININE 0.9 mg/dL (0.6-1.3); GLUCOSE 124 mg/dL (74-106); POTASSIUM 3.8 mmol/L (3.5-5.1); SODIUM SERUM 142 mmol/L (136-145); UREA NITROGEN, BLOOD 27 mg/dL (7-18)
[2023-11-21 11:35] VITALS: BP 129/74; TEMP 98.2; O2SAT 95
[2023-11-21 16:00] VITALS: BP 115/57; TEMP 98.6; O2SAT 98
[2023-11-21 22:20] VITALS: BP 135/55; TEMP 97.3; O2SAT 94
[2023-11-22 04:40] VITALS: BP 139/76; TEMP 97.4; O2SAT 93
[2023-11-22 11:31] VITALS: BP 119/68; TEMP 98.4; O2SAT 98
[2023-11-22 16:00] VITALS: BP 133/64; TEMP 98.3; O2SAT 95
[2023-11-22 20:30] VITALS: BP 117/60; TEMP 98.3; O2SAT 95
[2023-11-23 04:16] VITALS: BP 143/70; TEMP 98.3; O2SAT 96
[2023-11-23 11:34] VITALS: BP 124/70; TEMP 98.6; O2SAT 96
[2023-11-23 16:00] VITALS: BP 115/51; TEMP 97.3; O2SAT 94
[2023-11-23 19:00] VITALS: BP 130/66; TEMP 98.4; O2SAT 95
[2023-11-24 06:00] VITALS: BP 137/77; TEMP 98; O2SAT 95
[2023-11-24 09:16] VITALS: BP 157/86; TEMP 98.2; O2SAT 95
[2023-11-24 11:03] VITALS: BP 138/74; TEMP 97.8; O2SAT 95
[2023-11-24 15:10] VITALS: BP 122/80; TEMP 97.8; O2SAT 98
[2023-11-24 20:00] VITALS: BP 144/57; TEMP 100; O2SAT 93
[2023-11-25 07:00] VITALS: BP 140/65; TEMP 98.5; O2SAT 94
[2023-11-25 11:23] VITALS: BP 168/81; TEMP 98.5; O2SAT 97
[2023-11-25 15:36] VITALS: BP 136/84; TEMP 98.4; O2SAT 96
[2023-11-25 20:04] VITALS: BP 106/64; TEMP 97.8; O2SAT 95
[2023-11-26 06:53] VITALS: BP 119/68; TEMP 97.6
[2023-11-26 11:58] VITALS: BP 132/69; TEMP 98.4
[2023-11-26 15:24] VITALS: BP 139/68
== END 2023-11-26 15:10 | DRG 548 ==
LOC: ER 23:03 → MEDSURG3 10-29 02:05
PROVIDERS: ADMIT Nurse Practitioner Family; ATTEND Nurse Practitioner Acute Care
PROC: 0S9C3ZX Drainage of Right Knee Joint, Percutaneous Approach, Diagnostic (ICD-10-PCS; principal; 2023-10-29)
PROC: 05HB33Z Insertion of Infusion Device into Right Basilic Vein, Percutaneous Approach (ICD-10-PCS; 2023-10-29)
PROC: 05HC33Z Insertion of Infusion Device into Left Basilic Vein, Percutaneous Approach (ICD-10-PCS; 2023-11-03)
PROC: 05HC33Z Insertion of Infusion Device into Left Basilic Vein, Percutaneous Approach (ICD-10-PCS; 2023-11-11)
DX: M00.9 Pyogenic arthritis, unspecified (principal); N17.0 Acute kidney failure with tubular necrosis; I50.32 Chronic diastolic (congestive) heart failure; I48.20 Chronic atrial fibrillation, unspecified; G93.40 Encephalopathy, unspecified; M13.861 Other specified arthritis, right knee; I11.0 Hypertensive heart disease with heart failure; Z74.09 Other reduced mobility; Z22.322 Carrier or suspected carrier of Methicillin resistant Staphylococcus aureus; Z79.01 Long term (current) use of anticoagulants; F01.50 Vascular dementia, unspecified severity, without behavioral disturbance, psychotic disturbance, mood disturbance, and anxiety; E03.9 Hypothyroidism, unspecified; D17.21 Benign lipomatous neoplasm of skin and subcutaneous tissue of right arm; E83.42 Hypomagnesemia; I25.10 Atherosclerotic heart disease of native coronary artery without angina pectoris; Z79.890 Hormone replacement therapy; Z79.899 Other long term (current) drug therapy; M18.10 Unilateral primary osteoarthritis of first carpometacarpal joint, unspecified hand; E11.9 Type 2 diabetes mellitus without complications; Z86.73 Personal history of transient ischemic attack (TIA), and cerebral infarction without residual deficits; Z87.440 Personal history of urinary (tract) infections
CPT/HCPCS: 36415; 70030-TC; 71045; 73090; 73130; 73562; 76770; 83605; 83735; 83986; 84100; 84300; 84484; 84550; 85025; 85651; 86140; 86803; 87040; 87806; 93005; A4663; G0378; J0696; J1815; J1940; J2543; J3370; J3371; J3475; J3490; J7040; J7050; J7060